=== PATIENT | male | born 1945 | race African-American/Black ===

== ENCOUNTER → 2016-10-25 | Outpatient (CLI) | payer OTHER ==
[~2016-10-25] VITALS: Ht 167.6 cm; Wt 49.4 kg
[~2016-10-25] MED LIST: ACCUNEB SO1.25 MG/1; AGRYLIN0.5 MG PO; AGRYLIN1 MG PO; APAP500 PO; ASPIR 8181 MG PO; CENTRUM SILVER1 EAC2; CIPRO250 M1 PO; CLARITIN10 MG PO; COZAAR 25 MG TA25 M1 PO; ELIQUIS2.5 MG PO; EXJADE PO; FLOVENT HFA 1110 MCG; FOLIC ACID1 MG PO; HYDRALAZINE 2525 MG PO; HYDREA500 MG PO; HYZAAR 100-12.1 EACH PO; IRON325 PO; KLOR-CON 1010 MEQ PO; LISINOPRIL20 MG PO; LOSARTAN-HCTZ1 EACH PO; NAMENDA XR14 MG PO; NORCO 5-325 TA1 EACH PO; NORVASC5 MG PO; NOVOLOG100 UNIT/1; PREDNISONE 10 M10 MG PO; PROTONIX40 M1 PO; TESSALON PERLE100 MG; TIZANIDINE HCL2 M1 PO; VALIUM5 MG PO; VENTOLIN HFA 1818 GM; VITAMIN B-1100 M1 PO; XARELTO1 EACH PO; XARELTO20 MG PO; ZANAFLEX4 MG PO; ZESTRIL20 MG PO
[2016-10-25 12:51] VITALS: BP 146/74
== END | disposition home or self-care (01) ==
LOC: PAIN 07:27
DX: M54.16 Radiculopathy, lumbar region (principal); M47.27 Other spondylosis with radiculopathy, lumbosacral region

== ENCOUNTER → 2016-11-09 | Outpatient (CLI) | payer OTHER ==
[~2016-11-09] VITALS: Ht 167.6 cm; Wt 47.4 kg
[2016-11-09 08:21] VITALS: BP 129/67
== END | disposition home or self-care (01) ==
LOC: PAIN 11-02 11:46
DX: M54.16 Radiculopathy, lumbar region (principal); M47.27 Other spondylosis with radiculopathy, lumbosacral region; G89.29 Other chronic pain

== ENCOUNTER → 2016-12-06 | Outpatient (CLI) | payer OTHER ==
[~2016-12-06] VITALS: Ht 167.6 cm; Wt 49.4 kg
[~2016-12-06] MED LIST changes: +CARAFATE 1 GM TA1 G1 PO; +HYDREA 500 MG500 M1 PO; +ZOLOFT25 MG PO
--- NOTE | ~2016-12-06 | HPC ---
[facility] [address] [place] [address] PAIN MANAGEMENT CONSULTATION Name: FAUSTINO NOLEN Room #: REG JOSE SandhuRayne#: [id number] Admission: 12/06/16 Attend Phys: Rasta Chi DO Discharge: Date of : 45 Report #: [id number] THIS REPORT FOR: //name// CC: Rasta Correia MD DATE OF SERVICE: 12/06/2016 REFERRING PHYSICIAN: Tisha Correia M.D. CHIEF COMPLAINT: Low back pain and bilateral lower extremity pain with paresthesias. HISTORY OF PRESENT ILLNESS: As you know, the patient is a 71-year-old male who returns today in followup visit with pain score of 10/10. He underwent an epidural injection under fluoroscopic guidance at last visit, which provided only transient improvement in symptoms. He indicated about 50% improvement in overall pain after the initial injection but unfortunately, his pain returned quite rapidly to a 10/10 level. The patient indicates today pain is sharp and constant with numbness and tingling. Nothing appears to alleviate the symptoms and nothing appears to exacerbate his symptoms. He returns today to discuss the possibility of undergoing further evaluation and the possibility of undergoing next in a series of epidural injections to address ongoing pain issues. ALLERGIES: No known drug allergies. CURRENT MEDICATIONS: Hydroxyurea 500 mg once a day, sucralfate 1 g twice a day, Zoloft 25 mg once a day, lisinopril 20 mg once a day, Namenda 14 mg once a day, thiamine 100 mg twice a day and folic acid 1 mg once a day. SOCIAL HISTORY: The patient denies tobacco, alcohol, IV or illicit drug use. He is on disability, has been so for about 14 years. He is accompanied by his family member today. IMAGING DATA: No new imaging available. PHYSICAL EXAMINATION: VITAL SIGNS: Blood pressure 133/52, pulse 107 and respiratory rate 16 and unlabored. The patient is 100% on room air, height 5 feet 6 inches tall, weight 109 pounds and BMI calculated 17.3. GENERAL: Well developed, well nourished, thin 71-year-old male, appears much older than stated age, placing current pain score 10/10. HEENT: Normocephalic and atraumatic. Pupils equal, round and reactive to light. NEUROLOGICAL: Speech is fluent for the patient. [address] [address] PAIN MANAGEMENT CONSULTATION Name: FAUSTINO NOLEN Room #: REG JOSE Aldo#: [id number] Admission: 12/06/16 Attend Phys: Rasta Chi DO Discharge: Date of : 45 Report #: [id number] LUNGS: Clear. No wheeze, rhonchi or rales. CARDIOVASCULAR: Tachycardic. No appreciable gallop or rub. ABDOMEN: Soft and nontender. EXTREMITIES: Show no clubbing, no cyanosis and no edema. MUSCULOSKELETAL: Seated straight leg raising remains negative. Supine straight leg raising positive on the right. Fabere's test negative. Modified Gaenslen's positive for axial low back pain. Ankle clonus negative. Babinski is negative. Deep tendon reflexes are diminished patella and Achilles. Gait is antalgic favoring right lower extremity over left. ASSESSMENT: 1. Symptomatic lumbar radiculopathy. 2. Lumbosacral spondylosis with radiculopathy. 3. Spinal stenosis of the lumbar spine. 4. Lumbar degeneration. 5. Chronic intractable pain. PLAN: 1. The patient has returned today in followup visit indicating a transient improvement in symptoms with the epidural injection provided at last visit. The patient reported about a 50% improvement in overall pain, but this only lasted for a couple of days with a slow and progressive return of symptoms. I have discussed with the patient our concern that his symptoms may be a progression of spinal stenosis. This is a typical finding with epidural injections and spinal stenotic patients. Typically received excellent benefit initially and then a fairly rapid progression back towards a typical pain levels. This is usually due to the lack of inflammatory response around the stenotic area and more of a mechanical action. As you are aware, epidural injections do not provide efficacy for mechanical compression. It does help with the edema and irritation and inflammation processes in and around the area but do not directly affect central or foraminal stenosis. To further evaluate, we have requested the following. 2. We requested the patient to undergo MRI of the lumbar spine, no contrast. We will have the patient undergo the MRI imaging as quickly as possible. He indicates he may have had a back x-ray, possibly a CT examination at [facility]. We will attempt to obtain this imaging study so that we can compare to the MRI requested today. I feel that his treatment options are limited without a complete knowledge of what pathology exists in the lumbar region whether or not surgical options will be necessary. I believe that this will direct the patient's care more effectively and we need to receive this information as quickly as we can. 3. No medication changes were made at today's visit. The patient to continue current medical therapy as previously prescribed. 4. The patient is to return to our clinic for possible epidural injection at our next visit. We will begin the prior authorization process for the epidural injection. We are hopeful that once we have him back to undergo the injection, [address] [address] PAIN MANAGEMENT CONSULTATION Name: FAUSTINO NOLEN [facility] [id number] Admission: 12/06/16 Attend Phys: Rasta Chi DO Discharge: Date of : 45 Report #: [id number] we will have the MRI back so that we can determine if that injection would be necessary or whether surgical referrals might be warranted. We will begin the authorization process for the epidural injection as quickly as possible so that we have not available to us if we wish to utilize that for the pathology that might be noted in his MRI. This approval process will take somewhere between 4-7 working days. He has done very well with epidurals in the past. This is the first injection that we had a suboptimal improvement in symptoms. This is why we are sending the patient for MRI, but I do feel that this would be a beneficial procedure for the patient to undergo, so we continue workup. 5. We will see the patient back in followup visit once we have achieved precertification for the epidural injection and the patient has undergone his MRI, so that we can review the findings and discuss whether or not that injection would be of benefit. <ELECTRONICALLY SIGNED> By: Rasta Chi DO 12/07/16 0833 3 Rasta Chi DO /nt
[2016-12-06 08:13] VITALS: BP 133/52
== END | disposition home or self-care (01) ==
LOC: PAIN 07:01
DX: M54.16 Radiculopathy, lumbar region (principal); M47.27 Other spondylosis with radiculopathy, lumbosacral region; M48.06 Spinal stenosis, lumbar region; M51.36 Other intervertebral disc degeneration, lumbar region; G89.29 Other chronic pain; Z79.899 Other long term (current) drug therapy

== ENCOUNTER → 2016-12-12 | Outpatient (CLI) | payer OTHER | LOC: MRI 08:29 | DX: M47.26 Other spondylosis with radiculopathy, lumbar region (principal) ==

== ENCOUNTER → 2016-12-14 | Outpatient (CLI) | payer OTHER ==
[~2016-12-14] VITALS: Ht 167.6 cm; Wt 48.5 kg
--- NOTE | ~2016-12-14 | HPC ---
[facility] [place] [address] PAIN MANAGEMENT CONSULTATION Name: FAUSTINO NOLEN [facility] [id number] Admission: 12/14/16 Attend Phys: Rasta Chi DO Discharge: Date of : 45 Report #: [id number] THIS REPORT FOR: //name// CC: Rasta Correia MD DATE OF SERVICE: 12/14/2016 CHIEF COMPLAINT: Low back pain, bilateral lower extremity pain and paresthesias. HISTORY OF PRESENT ILLNESS: As you know, the patient is a 71-year-old male who returns today in followup visit to undergo epidural injection under fluoroscopic guidance. He has received excellent benefit with previous injections. He returns today with preauthorization to undergo the procedure. He is reporting pain score today, 9/10. States his pain is sharp, aching, numbness when describing pain, exacerbated with activities. He returns with preauthorization to undergo next in a series of epidural injections. ALLERGIES: No known drug allergies. CURRENT MEDICATIONS: Hydroxyurea, sucralfate, Zoloft, lisinopril, Namenda, thiamine, folic acid. SOCIAL HISTORY: The patient denies tobacco, alcohol, IV or illicit drug use. He is on disability, has been so for 14 years. He is accompanied by his family member. IMAGING: No new imaging available. PHYSICAL EXAMINATION: VITAL SIGNS: Blood pressure 131/64, pulse 88, respiratory rate 18, unlabored. The patient is 95% on room air, height 5 feet 6 inches tall, weight 107 pounds, BMI calculated 17.3. GENERAL: Well-developed, well-nourished, thin 71-year-old male. He appears much older than stated age, placing pain score today 9/10. HEENT: Normocephalic, atraumatic. Pupils are equal, round, reactive to light. EXTREMITIES: Show no clubbing, no cyanosis, no edema. MUSCULOSKELETAL: Seated straight leg raising negative. Supine straight leg raising is positive on the right at approximately 45 degree angle. Monie's test negative. Modified Gaenslen's positive for axial low back pain. Gait is antalgic favoring right lower extremity over left, diminished. Reflexes are noted at patella and Achilles. ASSESSMENT: [address] [address] PAIN MANAGEMENT CONSULTATION Name: SANTIAGO NOLENMARIA GUADALUPELee Room #: REG Ronda Aldo#: [id number] Admission: 12/14/16 Attend Phys: Rasta Cih DO Discharge: Date of : 45 Report #: [id number] 1. Symptomatic lumbar radiculopathy. 2. Spinal stenosis of lumbar spine. 3. Displacement of lumbar intervertebral disk with radiculopathy. 4. Lumbosacral spondylosis with radiculopathy. 5. Degeneration of lumbar spine. 6. Chronic intractable pain. PLAN: 1. The patient returns today in followup visit to undergo next in the series of epidural injections. We have received precertification for the patient to undergo this procedure today. The patient was advised of the risks and the benefits of this procedure. These risks include but are not necessarily limited to bleeding, bruising, infection, worsening pain, no relief of pain, also risk of temporary or permanent muscle weakness, temporary or permanent nerve damage, possible paralysis and . The patient states understood and wished to proceed. 2. No medication changes were made at today's visit, the patient to continue current medical therapy as previously prescribed. 3. The patient to return to our clinic on an as needed basis for next in the series of epidural injections. PROCEDURE NOTE DESCRIPTION OF PROCEDURE: L5-S1 right paramedian epidural steroid injection under fluoroscopic guidance. After obtaining written consent, the patient was taken back to fluoroscopy suite, placed in prone position with pillow under abdomen to decrease lumbar lordosis. Skin overlying lumbosacral area prepped and draped in aseptic fashion. Lumbar intervertebral spaces were identified by AP fluoroscopy. Skin and subcutaneous tissue overlying target site of injection was anesthetized with 3 mL of 1% lidocaine. A 20-gauge 3-1/2 inch Tuohy needle advanced under fluoroscopic guidance towards the epidural space using right paramedian approach. Epidural space identified using loss of resistance to air technique. After negative aspiration for heme or cerebrospinal fluid, 1 mL of Omnipaque was injected. Lumbar epidurogram was confirmed using both AP and lateral fluoroscopy. After negative aspiration for heme or cerebrospinal fluid, 5 mL of a solution containing 2 mL 40 mg per mL, 80 mg total triamcinolone, 3 mL lidocaine 1% injected slowly. Needle retracted half-way, needle tract flushed 3 mL 1% lidocaine. Needle removed. Sterile bandage placed over injection site. No new motor deficits present in lower extremity following the procedure. The patient tolerated procedure well, carefully escorted to recovery room in [facility] [address] [place] [address] PAIN MANAGEMENT CONSULTATION Name: FAUSTINO NOLEN Room #: REG [facility] EdsonRayne#: [id number] Admission: 12/14/16 Attend Phys: Rasta Chi DO Discharge: Date of : 45 Report #: [id number] stable condition. No apparent complications. After meeting discharge criteria, the patient discharged home. <ELECTRONICALLY SIGNED> By: Rasta Chi DO 12/20/16 1258 0729 0750 Rasta Chi DO /nt
[2016-12-14 09:11] VITALS: BP 131/64
== END | disposition home or self-care (01) ==
LOC: PAIN 07:12
DX: M51.16 Intervertebral disc disorders with radiculopathy, lumbar region (principal); M48.06 Spinal stenosis, lumbar region; M47.817 Spondylosis without myelopathy or radiculopathy, lumbosacral region; G89.29 Other chronic pain; Z79.899 Other long term (current) drug therapy

== ENCOUNTER 2018-03-07 18:58 | Inpatient (IN) | payer OTHER ==
[~2018-03-07] VITALS: Ht 167.6 cm; Wt 42.7 kg
--- NOTE | ~2018-03-07 | HC ---
[facility] [place] [address] CONSULTATION Name: FAUSTINO NOLEN Room #: 244-P ADM IN M.R.#: [id number] Admission: 03/07/18 Attend Phys: John Solorio MD Discharge: Date of : 45 Report #: [id number] THIS REPORT FOR: //name// CC: Fabrizio Solorio [facility] PALLIATIVE CARE CONSULTATION CHIEF COMPLAINT: Anemia and pneumonia. HISTORY OF PRESENT ILLNESS: The patient is a 73-year-old male who presented on 03/07/2018 from [facility] [place] where he had been residing after multiple recent hospitalizations. He was found to have initial white blood cell count 69,000 from 12.8 thousand on 01/30/2018. Initial workup showed possible left lower lobe pneumonia. He was started on treatment for this and then C. diff developed subsequently. This would be recurrence for him. He had a history of myeloproliferative disease, dementia and also anemia. He, subsequently unfortunately, has developed a GI bleed of undetermined origin as of yet, although it appears to be likely upper GI. The patient had a hemoglobin drop from the 7 range down to 4.4. The patient continues to have melenic stools. His pressures have dropped considerably. The patient, however, is able to maintain some attention level. He certainly has delirium at this time. I am unable to really assess his current situation. PAST MEDICAL HISTORY: Consists of dementia, anemia, history of C. diff, myeloproliferative disease and thoracic spinal compression fractures. PAST SURGICAL HISTORY: Knee surgery. MEDICATIONS: Thiamin, Zestril, Namenda, Lipitor, Megace, Zofran, folate, Zoloft, Carafate and hydroxyurea. SOCIAL HISTORY: He was previously living with his sister prior to admission, initially in June. He had Clostridium difficile infection as well as pneumonia and then was currently residing at [facility], currently full code. He does have a son. Sister, Jenae Hall, was listed as DPOA. ALLERGIES: No known drug allergies. FAMILY HISTORY: Noncontributory. REVIEW OF SYSTEMS: Unable to obtain significant at this time, although he denied pain for me currently. Again, it is very difficult to get much from the patient at this current point in time. PHYSICAL EXAMINATION: [address] [address] CONSULTATION Name: FANTA NOLENMARTINSBURG Room #: [address] [place] [address] [place] [facility].#: [id number] Admission: 03/07/18 Attend Phys: John Solorio MD Discharge: Date of : 45 Report #: [id number] VITAL SIGNS: Temperature 33.5, pulse 106, respirations 15, blood pressure 106/49 and 100% currently on room air. GENERAL: The patient is alert at times, but he has a poor overall attention level. He is in no acute distress. Again, the patient did demonstrate a melenic stool while I was present in the room. HEENT: No scleral icterus. No conjunctival injection. CARDIOVASCULAR: Tachycardic, otherwise regular rhythm. RESPIRATORY: Lungs are currently clear to auscultation bilaterally. ABDOMEN: Soft. He is nontender currently. EXTREMITIES: Generalized cachexia. LABORATORY DATA: Again, hemoglobin down to 4.4, this is despite receiving 2 units yesterday; white blood cells 93 and platelets 207,000. Creatinine is 0.9. ASSESSMENT AND PLAN: 1. Anemia due to gastrointestinal bleed. I had discussed extensively today with family. Discussed with GI today as well. Family present included sisters, Perlene and additional sister as well as his son and cousins. I spoke about plan of care going forward. Discussed the high likelihood that he would have to require intubation for the upper endoscopy. Unfortunately, we do not believe he is an excellent candidate for this at this time and did discuss this with the family. I did discuss that we could proceed, but this also could result in the end of his life. Family does not desire this at this time. I did discuss other options including a comfortable palliative route. They were amenable to this. They are amenable to withdrawing further transfusions, amenable to treatment only for comfort including medications. At this time, I have altered the medications. We will complete this most recent unit. I discussed probable longevity with family. Discussed possibility if stable over the next 24-48 hours of transfer to inpatient hospice facility; however, given the briskness of his bleed, I do not feel that this is likely. I did confirm palliative medications and made adjustments to these. The patient appears comfortable at this time. I did confirm a change to DNR status. We are no longer desiring to have CPR or mechanical ventilator. I did discuss palliative steps with nursing staff as well today. Spent approx 1 hour in discussion of advanced care planning. 2. Gastrointestinal bleed. Again, management as above. 3. Myeloproliferative process. Again, at this time, especially with thrombocythemia, though our goal is not for a prolonged life, we will stop hydroxyurea as unlikely the benefit given the severity of his anemia. I appreciate Oncology's input and consult with regards to this patient. 4. Dementia, again contributing to overall prognosis, especially in light of his severe protein-calorie malnutrition. Thank you very much for the consultation. We will follow along with his [facility] [address] [place] [address] CONSULTATION Name: FASUTINO NOLEN Room #: 244-P [facility] IN M.R.#: [id number] Admission: 03/07/18 Attend Phys: John Solorio MD Discharge: Date of : 45 Report #: [id number] palliative care process. Please contact me for any questions regarding this patient's palliative care, medications or orders. <ELECTRONICALLY SIGNED> By: Lele Huynh DO 03/15/18 2305 2312 0025 Lele Huynh DO /nt
--- NOTE | ~2018-03-07 | EKG ---
[address] [place] [address] ELECTROCARDIOGRAM REPORT Name: FAUSTINO NOLEN Room #: 354-P ADM IN M.R.#: [id number] Admission: 03/07/18 Attend Phys: John Solorio MD Discharge: Date of : 45 Report #: [id number] THIS REPORT FOR: //name// [facility] Test Date: 2018-03-11 Test Time: 05:15:51 Pat Name: FAUSTINO NOLEN Department: Room: 354 Gender: M Legal Records Clerk: jazz : 1945 Requested By: Erika Soler Order Number: [id number] MD: Marty Aleman Measurements Intervals [place] Rate: 96 P: 73 MN: 158 QRS: 64 QRSD: 82 T: 45 QT: 337 QTc: 426 Interpretive Statements Sinus rhythm Ventricular premature complex Low voltage, extremity leads Compared to ECG 03/07/2018 19:28:20 Ventricular premature complex(es) now present Electronically Signed On 03-12-2018 8:02:51 DISASTER RECOVERY SPECIALIST by Marty Aleman [email or web address] <ELECTRONICALLY SIGNED> By: Marty Aleman MD, [facility] [id number] 4 Marty Aleman MD, [facility] /EPI
--- NOTE | ~2018-03-07 | EKG ---
[address] [address] ELECTROCARDIOGRAM REPORT Name: FANTA NOLENMARTINLee Room #: 349-I ADM IN M.R.#: [id number] Admission: 03/07/18 Attend Phys: John Solorio MD Discharge: Date of : 45 Report #: [id number] THIS REPORT FOR: //name// [facility] Test Date: 2018-03-11 Test Time: 05:15:51 Pat Name: FAUSTINO NOLEN Department: Room: 349 Gender: M Stacker Straightener: jazz : 1945 Requested By: John Solorio Order Number: [id number] MD: Measurements Intervals [place] Rate: 96 P: 73 [place]: 158 QRS: 64 QRSD: 82 T: 45 QT: 337 QTc: 426 Interpretive Statements Sinus rhythm Ventricular premature complex Low voltage, extremity leads Minimal ST elevation, lateral leads Compared to ECG 03/07/2018 19:28:20 Ventricular premature complex(es) now present Low QRS voltage now present ST (T wave) deviation now present [email or web address] By: 0515 0515 Epiphany Epiphany, /EPI
--- NOTE | ~2018-03-07 | EKG ---
[address] [place] [place] [address] ELECTROCARDIOGRAM REPORT Name: FAUSTINO NOLEN Room #: 349-I ADM IN M.R.#: [id number] Admission: 03/07/18 Attend Phys: John Solorio MD Discharge: Date of : 45 Report #: [id number] THIS REPORT FOR: //name// [facility] ED Test Date: 2018-03-07 Test Time: 19:28:20 Pat Name: FAUSTINO NOLEN Department: Room: [facility] Gender: M Inpatient Services Director: BS : 1945 Requested By: Shannon Rebolledo Order Number: [id number] MD: Marty Aleman Measurements Intervals [place] Rate: 87 P: 72 [place]: 153 QRS: 70 QRSD: 85 T: 65 QT: 375 QTc: 451 Interpretive Statements Sinus rhythm No significant abnormality Compared to ECG 09/20/2014 14:43:06 Sinus tachycardia no longer present Electronically Signed On 03-08-2018 8:05:24 REAL ESTATE LEGAL SECRETARY by Marty Aleman [email or web address] <ELECTRONICALLY SIGNED> By: Marty Almean MD, [facility] 03/08/18 0805 27 27 Marty Aleman MD, [facility] /EPI
--- NOTE | ~2018-03-07 | HC ---
[facility] [place] [address] CONSULTATION Name: FAUSTINO NOLEN Room #: 349-I ADM IN M.R.#: [id number] Admission: 03/07/18 Attend Phys: John Solorio MD Discharge: Date of : 45 Report #: [id number] THIS REPORT FOR: //name// CC: Fabrizio Colon DATE OF SERVICE: 03/08/2018 INFECTIOUS DISEASE CONSULTATION HISTORY OF PRESENT ILLNESS: This is a 73-year-old man with multiple medical problems, is seen today in consultation regarding leukocytosis and previous history of pneumonia and Clostridium difficile colitis. The patient is awake and alert, tells me he is at [facility], but from there on he is not quite able to give me a coherent medical history and information, consequently all information on this patient is gathered from the review of current and old medical records, which by the way are rather sketchy. PAST MEDICAL HISTORY: Recent hospitalization at 2 other hospitals in the city for an episode of pneumonia and Clostridium difficile colitis. Review of the records from the residential indicate the patient is on hydroxyurea, which makes me suspect we are treating either idiopathic essential thrombocythemia. The patient's white blood cell count on 03/07/2018, was not significantly elevated. The white blood cell count differential did reveal 17% lymphocytes, 3% immature lymphocytes and 6% metamyelocytes. The patient is severely anemic. Currently, his white blood cell count is in the 60,000. The patient is also known to have severe malnutrition and family appears to have refused percutaneous gastrostomy. On account of these no chemotherapy was indicated. There appears to be a history of recent pneumonia and C. difficile colitis. The patient appears to have some cognitive impairment for which he is on the usual dementia prescribed medications (memantine). The patient is also on sertraline, I suspect for possibly some low-grade dementia. The patient has a history of lumbar radiculopathy. MRI of the back and CT scan of the back have revealed compression fractures of T spine. SOCIAL HISTORY: See H and P, old records. FAMILY HISTORY: See H and P, old records. REVIEW OF SYSTEMS: Less contributory in view of the patient's inability to provide good medical information. DRUG ALLERGIES: None listed. MEDICATIONS: The patient is on Levaquin 750 mg IV every 48 hours, vancomycin [address] [address] CONSULTATION Name: FAUSTINO NOLEN Room #: 349-I [facility] IN [facility].#: [id number] Admission: 03/07/18 Attend Phys: John Solorio MD Discharge: Date of : 45 Report #: [id number] 500 mg IV every 12 hours and Zosyn 3.375 grams IV every 8 hours. He is also receiving treatment with guaifenesin, Atrovent and albuterol inhalation treatments, p.r.n. acetaminophen, polyethylene glycol daily and p.r.n. ondansetron. PHYSICAL EXAMINATION: GENERAL: Chronically ill-appearing, thin, frail-appearing black man. VITAL SIGNS: Afebrile since admission. Temperature 97.2, pulse 98, respirations 22, BP 126/64, height 5 feet 6 inches and weight 83.8 pounds. HEENMT: Head normocephalic and atraumatic. Heavy arcus cornealis. Pupils are reactive. Mouth: Moist mucous membrane. NECK: Supple. LUNGS: Decreased breath sounds in the left lung posteriorly. HEART: S1, S2. No gallop or murmur. CHEST: Revealed right-sided infraclavicular Port-A-Cath. ABDOMEN: Soft, no masses or megaly. GENITALIA AND RECTAL: Deferred. EXTREMITIES: No clubbing or cyanosis. NEUROLOGIC: Grossly within normal limits. LABORATORY DATA: Revealed sodium 140, potassium 3.6, CO2 of 25, BUN 24, creatinine 1.2, calcium 7.3, possibly reflecting hypoalbuminemia, which as a matter of fact is extremely low at 1.4 g/dL. The C-reactive protein 86.5 mg per liter, significantly elevated. Protime 15.2 seconds. INR 1.5. White blood cell count is 65,700, hemoglobin 8.4 g/dL and platelets 180,000. White blood cell count obtained yesterday revealed 59% segmented neutrophils, 4% bands, 23% lymphocytes and 13% monocytes, large platelets detected on peripheral smear, but nothing said about atypical lymphocytes. Prealbumin 7.2 mg/dL, significantly lower than normal. Serum IgG is pending. The urinalysis is negative. MICROBIOLOGY DATA: Urine and blood cultures were obtained and those are negative so far. RADIOLOGY EVALUATION: Chest x-ray revealed a Port-A-Cath and some possible atelectasis and small effusion on the left lower lung. ASSESSMENT: 1. Leukocytosis, suspect chronic lymphocytic leukemia versus myelodysplasia versus essential thrombocythemia on treatment with hydroxyurea. 2. Left lower lung atelectasis. 3. History of recent Clostridium difficile colitis and pneumonia. 4. Severe malnutrition. 5. Possible dementia. 6. Compression fracture of T-spine. SUGGESTIONS: Recommend obtaining CRP, ESR, MRSA screen, which already had been [facility] [address] [place] [address] CONSULTATION Name: FAUSTINO NOLEN Room #: 349-I [facility] IN .R.#: [id number] Admission: 03/07/18 Attend Phys: John Solorio MD Discharge: Date of : 45 Report #: [id number] ordered as well as rechecking C. difficile toxin assay. Streamline antibiotic regimens pending laboratory results. Dr. Solorio, thank you for requesting my suggestions in the care of your patient. <ELECTRONICALLY SIGNED> By: Clive Chacko MD 03/09/18 0946 [id number] [id number] Clive Chacko MD /nt
--- NOTE | ~2018-03-07 | EKG ---
[address] [place] [address] ELECTROCARDIOGRAM REPORT Name: CALLUMFAUSTINO Room #: 244-P ADM IN M.R.#: [id number] Admission: 03/07/18 Attend Phys: John Solorio MD Discharge: Date of : 45 Report #: [id number] THIS REPORT FOR: //name// [facility] Test Date: 2018-03-13 Test Time: 23:39:01 Pat Name: FAUSTINO NOLEN Department: Room: [facility] Gender: M Court Bailiff: [id number] : 1945 Requested By: Madiha Arnett Order Number: [id number] MD: Marty Aleman Measurements Intervals [place] Rate: 145 P: 81 OK: 136 QRS: 80 QRSD: 60 T: -74 QT: 285 QTc: 443 Interpretive Statements Sinus tachycardia Anteroseptal infarct, old Nonspecific T abnormalities Compared to ECG 03/11/2018 05:15:51 Heart rate has increased Nonspecific change in the ST and T-wave segments Ventricular premature complex(es) no longer present Electronically Signed On 03-14-2018 7:52:54 [employer] by Marty Aleman [email or web address] <ELECTRONICALLY SIGNED> By: Marty Aleman MD, [facility] 03/14/18 [id number] [id number] Marty Aleman MD, [facility] /EPI
--- NOTE | ~2018-03-07 | HC ---
[facility] [place] [place] [address] CONSULTATION Name: FAUSTINO NOLEN Room #: 354-P ADM IN M.R.#: [id number] Admission: 03/07/18 Attend Phys: John Solorio MD Discharge: Date of : 45 Report #: [id number] THIS REPORT FOR: //name// CC: HEIDI Russell MD DATE OF SERVICE: 03/09/2018 REASON FOR CONSULTATION: Leukocytosis. HISTORY OF PRESENT ILLNESS: The patient is a very pleasant 73-year-old male, with a history of essential thrombocythemia and myeloproliferative disorder, who many years ago had seen Dr. Bui, who most recently has seen Dr. Sudheer Bucio at [facility]. According to his , he gets transfusions about every 4-6 weeks. He also has been on, it sounds like an iron chelator in the past. He has not been on any active therapy other than the Hydrea. It sounds like he had recently been in the hospital at one institution for colitis and at another institution for pneumonia. He came in here for leukocytosis with possible infection. The patient's says that he has had may be a little bit, but no definite fever lately. He had elevated white count. His mentation may be a little bit lower and he was brought to the hospital. He was also noted to have a high white count at his nursing facility and that is part of the reason he was brought to the hospital. PAST MEDICAL HISTORY: Also declining percutaneous gastrostomy, also has a history of probable mild dementia, also some slight mood disorder and severe protein calorie malnutrition. SOCIAL HISTORY: Unchanged. FAMILY HISTORY: Not available. MEDICATIONS: At this time currently includes levofloxacin, vancomycin, Zosyn, also still has resumed albuterol and ipratropium inhalation therapy, p.r.n. Tylenol, p.r.n. MiraLax. LABORATORY DATA: Here is notable for BUN of 25, creatinine of 1.1, calcium 7.6, albumin 1.4. Liver functions low. White count was 72 on admission, hemoglobin 7, platelets 205. Differential included 59% seg neutrophils, 4 bands, 23% lymphocytes, 13 monocytes, 1 eosinophil. Note that we had outside lab showing that typically at least the last month or so, his white count has been more than [facility] [address] [facility] [place] [address] CONSULTATION Name: FAUSTINO NOLEN Room #: 354-P ADM IN [facility]#: [id number] Admission: 03/07/18 Attend Phys: John Solorio MD Discharge: Date of : 45 Report #: [id number] 12-13 range. PHYSICAL EXAMINATION: GENERAL: The patient appears his stated age. He is an elderly, emaciated male in a hospital bed who is awake and pleasant. His is present. VITAL SIGNS: Blood pressure at that time was around 126/64, pulse of 98, temperature is 97.2 axillary, respirations 20. NEUROLOGIC: He is awake, is slow to answer questions and I am not sure he is the most reliable historian as he is tired. LYMPHATICS: No enlarged lymph nodes on exam. LUNGS: Seem mostly clear. HEART: Seems regular rate. ABDOMEN: Soft, no masses. EXTREMITIES: Without clubbing or cyanosis. They are quite emaciated. ASSESSMENT AND PLAN: 1. Essential thrombocythemia/myeloproliferative disorder. He has been on Hydrea, most likely suspect reactive process. Do not suspect chronic lymphocytic leukemia or leukemic transformation at this time. We will wait to see if it declines. Continue supporting with transfusion to keep the hemoglobin above 7. 2. Leukocytosis. Suspect underlying infection. Agree with multiple antibiotics and cultures. 3. History of probable dementia. Continues medicines. 4. Protein calorie malnutrition, offer supplements. 5. Prognosis poor/guarded. 6. Iron overload, has been on deferoxamine in the past. We will defer to Dr. Bucio once the patient is discharged whether to continue. <ELECTRONICALLY SIGNED> By: Roddy Khan MD 03/12/18 0648 [id number] Roddy Khan MD /nt
--- NOTE | ~2018-03-07 | HC ---
[facility] [place] [address] CONSULTATION Name: FAUSTINO NOLEN Room #: 244-P [facility] IN ..#: [id number] Admission: 03/07/18 Attend Phys: John Solorio MD Discharge: Date of : 45 Report #: [id number] THIS REPORT FOR: //name// CC: Fabrizio Colon DATE OF SERVICE: 03/12/2018 CHIEF COMPLAINT: Sacral pressure ulceration. HISTORY OF PRESENT ILLNESS: This is a 73-year-old male with a history of chronic lymphocytic leukemia, anemia and dementia who resides at [facility]. He was noted to have abnormal elevated white blood cell count. He was seen to have a sacral ulcer. I have been asked to see him with regard to ongoing wound care. The patient cannot provide much information about himself. He denies pain in his sacral region. PAST MEDICAL HISTORY: Positive for chronic lymphocytic leukemia weakness, multiple falls, dementia, sepsis, acute kidney injury, hypophosphatemia, hypertension, hyperlipidemia. He has had a history of C. difficile enterocolitis in 12/2017. FAMILY HISTORY: Positive for thyroid cancer, breast cancer, hypertension, cerebrovascular accident. SOCIAL HISTORY: Negative for alcohol or tobacco use. ALLERGIES: No known drug allergies. MEDICATIONS: Folic acid, vitamin B1, Namenda, Zestril, Zoloft, Carafate, Hydrea. REVIEW OF SYSTEMS: Not obtainable due to the patient's dementia. PHYSICAL EXAMINATION: VITAL SIGNS: At this time include pulse 115, respirations 16, blood pressure 123/87, temperature 97.0. GENERAL: This is a chronically ill, somewhat cachectic appearing male patient who appears to be in minimal distress. HEENT: Head normocephalic. Nose and throat are clear. NECK: Supple. LUNGS: Clear. ABDOMEN: Soft. Bowel sounds present. Sacral region demonstrates a stage 3 pressure ulceration to the sacrococcygeal region. It is relatively small, is mostly covered with fibrin. No exposed deep structures. [facility] [address] [place] [address] CONSULTATION Name: FANTA NOLENOLYPHANT Room #: 244-P [facility] IN ..#: [id number] Admission: 03/07/18 Attend Phys: John Solorio MD Discharge: Date of : 45 Report #: [id number] NEUROLOGIC: He is alert. He does move all 4 extremities spontaneously. He is a bit confused. LABORATORY DATA: White blood cell count 89.1, hemoglobin 7.6, hematocrit 24.3. Sodium 143, potassium 3.5, chloride 112, CO2 22, BUN 14, creatinine 0.9. CLINICAL IMPRESSION: 1. Stage 3 sacral pressure ulceration. 2. Possible healthcare-associated pneumonia. 3. Clostridium difficile enterocolitis. 4. Leukocytosis, likely due to chronic lymphocytic leukemia, likely reactive. 5. Moderate protein-calorie malnutrition. RECOMMENDATIONS: At this point in time, the patient will be placed on low air loss mattress. We will recommend a moisture barrier cream with zinc oxide to the sacral region twice a day and as needed. He may need q.2h. turning and repositioning, aggressive nutritional support. I appreciate being asked to see him in consultation. <ELECTRONICALLY SIGNED> By: Robb Thomas MD 03/14/18 0816 [id number] Robb Thomas MD /nt
[2018-03-07 18:59] VITALS: BP 113/45; BP 122/36
[2018-03-07 19:34] LABS: HEMATOCRIT 22.2 % (42.0-52.0); MCH 27.8 pg (26.0-34.0); MCHC 31.6 g/dL (28.0-37.0); MCV 87.8 fL (80.0-100.0); PLATELET COUNT 205 thou/uL (150-400); RBC 2.53 mil/uL (4.50-6.00); RDW 15.9 % (10.5-14.5)
[2018-03-07 19:39] LABS: CALCIUM 7.6 mg/dL (8.5-10.1); CREATININE 1.1 mg/dL (0.7-1.3)
[2018-03-07 19:44] LABS: APTT 49.2 Seconds (24.5-32.8); INR 1.5; PROTIME 15.2 Seconds (9.3-11.4)
[2018-03-07 19:45] LABS: ALBUMIN 1.4 g/dL (3.4-5.0); TOTAL BILIRUBIN 0.3 mg/dL (<0.1-1.0); TOTAL PROTEIN 6.9 g/dL (6.4-8.2)
[2018-03-07 20:10] LABS: ABSOLUTE NEUTROPHILS 45.4 thou/uL (1.4-8.2)
[2018-03-07 20:11] LABS: ANISOCYTOSIS 1+; HYPOCHROMASIA SLIGHT
[2018-03-07 20:12] LABS: LARGE PLATELETS OCCASIONAL
[2018-03-07 20:13] LABS: POLYCHROMASIA OCCASIONAL
[2018-03-07 20:24] LABS: URINE BILIRUBIN NEGATIVE (Negative); URINE BLOOD NEGATIVE (Negative); URINE CLARITY CLEAR; URINE COLOR YELLOW; URINE GLUCOSE-RANDOM* NEGATIVE (Negative); URINE KETONES NEGATIVE (Negative); URINE LEUKOCYTES NEGATIVE (Negative); URINE NITRITE NEGATIVE (Negative); URINE PROTEIN (DIPSTICK) NEGATIVE (Negative); URINE UROBILINOGEN 0.2 E.U./dl (0.2-1.0)
[2018-03-07 20:54] VITALS: BP 114/43
[2018-03-07 21:08] VITALS: BP 122/49
[2018-03-07 23:35] VITALS: BP 121/60
[2018-03-07] MEDS ORDERED: UNICOMPLEX M TA1 TA1 PO (23:59)
[2018-03-08] MEDS ORDERED: LIPITOR10 MG PO
[2018-03-08] MEDS ORDERED: MEGESTROL400 MG/11 PO (00:03)
[2018-03-08] MEDS ORDERED: ONDANSETRON HCL4 M2 PO (00:04)
[2018-03-08] MEDS ORDERED: TYLENOL325 MG PO (00:05)
[2018-03-08 03:45] VITALS: BP 115/57
[2018-03-08 04:43] LABS: CALCIUM 7.3 mg/dL (8.5-10.1); CREATININE 1.2 mg/dL (0.7-1.3); POTASSIUM 3.6 mmol/L (3.5-5.1)
[2018-03-08 04:48] LABS: HEMATOCRIT 20.3 % (42.0-52.0); MCH 27.8 pg (26.0-34.0); MCHC 31.2 g/dL (28.0-37.0); MCV 89.3 fL (80.0-100.0); RBC 2.27 mil/uL (4.50-6.00); RDW 16.3 % (10.5-14.5)
[2018-03-08 04:55] LABS: HEMOGLOBIN 6.3 gm/dL (14.0-18.0); WBC 65.7 thou/uL (4.0-11.0)
[2018-03-08 05:51] VITALS: BP 118/60
[2018-03-08 06:17] VITALS: BP 116/66; BP 122/55
[2018-03-08 08:22] VITALS: BP 126/64
[2018-03-08] MEDS ORDERED: MARINOL 2.5 MG2.5 M1 PO (08:33)
[2018-03-08 10:15] LABS: HEMATOCRIT 26.1 % (42.0-52.0)
[2018-03-08 10:16] LABS: HEMOGLOBIN 8.4 gm/dL (14.0-18.0)
[2018-03-08 17:07] VITALS: BP 127/67
[2018-03-08 19:45] VITALS: BP 132/66
[2018-03-09 03:45] VITALS: BP 119/60
[2018-03-09 05:41] LABS: HEMOGLOBIN 7.9 gm/dL (14.0-18.0); MCH 29.4 pg (26.0-34.0); MCV 89.2 fL (80.0-100.0); RBC 2.69 mil/uL (4.50-6.00); RDW 15.1 % (10.5-14.5)
[2018-03-09 05:45] LABS: WBC 65.6 thou/uL (4.0-11.0)
[2018-03-09 05:47] LABS: CALCIUM 7.3 mg/dL (8.5-10.1); POTASSIUM 3.3 mmol/L (3.5-5.1)
[2018-03-09 05:54] LABS: ABSOLUTE RETIC COUNT 0.0168 10^6/uL; OBSERVED RETIC COUNT 0.61 % (0.6-2.6)
[2018-03-09 05:55] LABS: % SATURATION 126 % (20-39); IRON 48 ug/dL (65-175); TIBC 38 ug/dL (250-450)
[2018-03-09 06:57] LABS: FERRITIN 2019 ng/mL (26-388); FOLIC ACID 18.3 ng/mL (8.6-58.9)
[2018-03-09 07:23] VITALS: BP 139/73
[2018-03-09 16:40] VITALS: BP 143/68
[2018-03-09 19:18] VITALS: BP 138/76
[2018-03-10 04:23] VITALS: BP 128/64
[2018-03-10 07:58] VITALS: BP 143/92
[2018-03-10 10:36] LABS: HEMATOCRIT 24.7 % (42.0-52.0); HEMOGLOBIN 7.8 gm/dL (14.0-18.0)
[2018-03-10 10:39] LABS: MCH 28.1 pg (26.0-34.0); MCHC 31.4 g/dL (28.0-37.0); MCV 89.4 fL (80.0-100.0); PLATELET COUNT 236 thou/uL (150-400); RBC 2.77 mil/uL (4.50-6.00)
[2018-03-10 10:42] LABS: WBC 74.3 thou/uL (4.0-11.0)
[2018-03-10 10:45] LABS: CALCIUM 7.6 mg/dL (8.5-10.1); CREATININE 0.9 mg/dL (0.7-1.3); POTASSIUM 3.6 mmol/L (3.5-5.1)
[2018-03-10 12:34] VITALS: BP 162/65
[2018-03-10 14:05] LABS: LARGE PLATELETS SEVERAL
[2018-03-10 16:47] VITALS: BP 115/74
[2018-03-10 20:20] VITALS: BP 114/60
[2018-03-11 04:27] VITALS: BP 154/85
[2018-03-11 05:15] LABS: HEMATOCRIT 24.3 % (42.0-52.0)
[2018-03-11 05:19] LABS: HEMOGLOBIN 7.6 gm/dL (14.0-18.0); MCH 28.3 pg (26.0-34.0); MCHC 31.3 g/dL (28.0-37.0); MCV 90.4 fL (80.0-100.0); RBC 2.69 mil/uL (4.50-6.00); RDW 16.1 % (10.5-14.5)
[2018-03-11 05:22] LABS: CALCIUM 7.5 mg/dL (8.5-10.1); CREATININE 0.9 mg/dL (0.7-1.3); POTASSIUM 3.5 mmol/L (3.5-5.1)
[2018-03-11 05:23] LABS: WBC 89.1 thou/uL (4.0-11.0)
[2018-03-11 07:31] VITALS: BP 143/75
[2018-03-11 15:24] VITALS: BP 153/88
[2018-03-11 20:30] VITALS: BP 139/66
[2018-03-12 04:02] VITALS: BP 125/69
[2018-03-12 08:51] VITALS: BP 115/60
[2018-03-12 09:09] LABS: HEMOGLOBIN 6.9 gm/dL (14.0-18.0)
[2018-03-12 09:12] LABS: HEMATOCRIT 23.1 % (42.0-52.0); MCH 27.2 pg (26.0-34.0); MCV 90.6 fL (80.0-100.0); PLATELET COUNT 265 thou/uL (150-400); RBC 2.55 mil/uL (4.50-6.00); RDW 16.7 % (10.5-14.5)
[2018-03-12 12:33] VITALS: BP 114/67
[2018-03-12 16:17] LABS: ABSOLUTE NEUTROPHILS 66.6 thou/uL (1.4-8.2); ATYPICAL MONONUCLEARS 2 %; METAMYELOCYTES 1 %
[2018-03-12 16:22] LABS: ABSOLUTE NEUTROPHILS 44.6 thou/uL (1.4-8.2); ATYPICAL MONONUCLEARS 2 %; METAMYELOCYTES 1 %
[2018-03-12 16:29] VITALS: BP 123/87
[2018-03-12 17:08] LABS: HEMATOLOGY COMMENTS Note: (())
[2018-03-12 19:13] VITALS: BP 123/69
[2018-03-13] VITALS (8 sets, daily range): BP systolic 105–145; BP diastolic 55–82
[2018-03-13 06:23] LABS: CALCIUM 7.6 mg/dL (8.5-10.1); CREATININE 0.9 mg/dL (0.7-1.3); POTASSIUM 3.3 mmol/L (3.5-5.1)
[2018-03-13 06:45] LABS: MCV 91.1 fL (80.0-100.0); RBC 1.93 mil/uL (4.50-6.00)
[2018-03-13 06:46] LABS: MCH 25.9 pg (26.0-34.0); MCHC 28.4 % (28.0-37.0); RDW 16.5 % (10.5-14.5)
[2018-03-13 06:48] LABS: HEMATOCRIT 17.5 % (42.0-52.0); WBC 118.2 thou/uL (4.0-11.0)
[2018-03-13 14:52] LABS: HEMATOCRIT 21.5 % (42.0-52.0)
[2018-03-13 15:00] LABS: HEMOGLOBIN 6.4 gm/dL (14.0-18.0)
[2018-03-13 21:55] LABS: HEMATOCRIT 25.2 % (42.0-52.0); HEMOGLOBIN 7.7 gm/dL (14.0-18.0)
[2018-03-14] VITALS (49 sets, daily range): BP systolic 64–140; BP diastolic 34–71
[2018-03-14 02:04] LABS: MCH 25.2 pg (26.0-34.0); MCHC 29.7 g/dL (28.0-37.0); RBC 1.76 mil/uL (4.50-6.00); RDW 18.6 % (10.5-14.5)
[2018-03-14 02:10] LABS: CREATININE 0.9 mg/dL (0.7-1.3); POTASSIUM 4.2 mmol/L (3.5-5.1)
[2018-03-14 04:13] LABS: WBC 93.7 thou/uL (4.0-11.0)
[2018-03-14 04:14] LABS: HEMATOCRIT 14.9 % (42.0-52.0); HEMOGLOBIN 4.4 gm/dL (14.0-18.0); MCV 84.8 fL (80.0-100.0)
[2018-03-15] VITALS (12 sets, daily range): BP systolic 97–128; BP diastolic 41–72
[2018-03-16 12:56] VITALS: BP 97/40
== END 2018-03-16 17:13 | disposition hospice, inpatient (51) | DRG 840 ==
LOC: ER 18:58 → ICU 20:36 → EROBS 20:36 → 3W 20:36 → ICU 03-14 04:22 → 3W 03-14 04:22 → ICU 03-16 17:13
PROVIDERS: Hospitalist; Internal Medicine Hematology & Oncology; Nurse Practitioner Acute Care; Nurse Practitioner Family; Physician Assistant
PROC: 30233N1 Transfusion of Nonautologous Red Blood Cells into Peripheral Vein, Percutaneous Approach (ICD-10-PCS; principal; 2018-03-08)
DX: C91.10 Chronic lymphocytic leukemia of B-cell type not having achieved remission (principal); L89.153 Pressure ulcer of sacral region, stage 3; J18.9 Pneumonia, unspecified organism; E43 Unspecified severe protein-calorie malnutrition; R65.20 Severe sepsis without septic shock; A04.72 Enterocolitis due to Clostridium difficile, not specified as recurrent; J98.11 Atelectasis; M48.54XA Collapsed vertebra, not elsewhere classified, thoracic region, initial encounter for fracture; K92.2 Gastrointestinal hemorrhage, unspecified; N17.9 Acute kidney failure, unspecified; D62 Acute posthemorrhagic anemia; Z68.1 Body mass index [BMI] 19.9 or less, adult; C94.6 Myelodysplastic disease, not elsewhere classified; D47.3 Essential (hemorrhagic) thrombocythemia; E83.111 Hemochromatosis due to repeated red blood cell transfusions; E78.5 Hyperlipidemia, unspecified; I10 Essential (primary) hypertension; G30.9 Alzheimer's disease, unspecified; F02.80 Dementia in other diseases classified elsewhere, unspecified severity, without behavioral disturbance, psychotic disturbance, mood disturbance, and anxiety; Z51.5 Encounter for palliative care; Z66 Do not resuscitate; Z80.3 Family history of malignant neoplasm of breast; Z80.8 Family history of malignant neoplasm of other organs or systems; Z82.3 Family history of stroke; Z82.49 Family history of ischemic heart disease and other diseases of the circulatory system; Z79.899 Other long term (current) drug therapy
CPT/HCPCS: 10078; 10203; 10879; 85030